=== PATIENT | male | born 1955 | race Caucasian/White ===

== ENCOUNTER 2020-01-25 14:31 | Emergency (ER) | payer MEDICARE, OTHER ==
[~2020-01-25] VITALS: Ht 175.3 cm; Wt 99.8 kg
[2020-01-25] MEDS ORDERED: MIDAZOLAM DRIP 50 mg/50mL 50 ML IV ONE (14:39)
[2020-01-25] MEDS ORDERED: SUCCINYLCHOLINE CHLORIDE 20 MG/ML 10ML VIAL IV ONE (14:39)
[2020-01-25] MEDS ORDERED: ETOMIDATE (2MG/ML) 20ML VIAL IV ONE (14:39)
[2020-01-25 14:40] VITALS: BP 149/123
[2020-01-25] MEDS ORDERED: PHENYLEPHRINE IV 250 ML IV SCH (15:15)
[2020-01-25] MEDS ORDERED: MIDAZOLAM DRIP 50 mg/50mL 50 ML IV SCH (15:15)
[2020-01-25] MEDS ORDERED: DOPamine 1600MCG/ML D5W 250 ML IV ONE (15:15)
[2020-01-25] MEDS ORDERED: NOREPINEPHRINE 8 MG/250ML KIT 250 ML IV SCH (15:15)
[2020-01-25 15:22] LABS: Hematocrit 27.7 % (41.0-53.0); Hemoglobin 8.7 g/dL (13.5-17.5); Mean Corpuscular Hemoglobin 31.7 pg (28.0-32.0); Mean Corpuscular Hgb Conc. 31.5 g/dL (32.0-36.0); Mean Corpuscular Volume 100.8 fL (80.0-100.0); Platelet Count (auto) 128 10^3/uL (140-450); Red Blood Cells 2.75 10^6/uL (4.5-5.90); Red Cell Distribution Width 14.6 % (11.8-14.3); White Blood Cell 7.8 10^3/uL (4.4-10.8)
[2020-01-25] MEDS ORDERED: EPINEPHrine HCL 250 ML IV ONE (15:22)
[2020-01-25] MEDS ORDERED: SODIUM BICARBONATE 8.4% INJ 50ML SYRINGE ONE (15:25)
[2020-01-25] MEDS ORDERED: EPINEPHrine HCL 250 ML IV SCH (15:30)
[2020-01-25 15:31] LABS: Basophils % (manual) 0 (0.0-2.0); Blast Cells 0; Metamyelocytes % 0; Myelocytes % 0; Promyelocytes % 0; Reactive Lymphocytes 0
[2020-01-25 15:38] LABS: Albumin 1.9 g/dL (3.4-5.0); Potassium 3.4 mmol/L (3.5-5.1)
[2020-01-25 15:45] LABS: BUN/Creatinine Ratio 12.4; Bilirubin, Total 0.2 mg/dL (0.2-1.0); Total Protein 3.7 g/dL (6.4-8.2)
[2020-01-25] MEDS ORDERED: PHENYLEPHRINE IV 250 ML IV ONE (15:49)
[2020-01-25] MEDS ORDERED: SODIUM CHLORIDE 0.9% 1,000 ML IV ONE (16:15)
[2020-01-25 16:18] VITALS: BP 66/0
[2020-01-25 16:51] LABS: Band Neutrophils % (manual) 1; Eosinophils % (manual) 1 (0-7); Lymphocytes % (manual) 39 (10.0-50.0); Monocytes % (manual) 8 (0-12)
[2020-01-25 17:16] LABS: INR 1.18 (0.9-1.15); Partial Thromboplastin Time 44.6 sec (23.0-31.2)
== END 2020-01-25 17:03 ==
LOC: EDBD 14:31 → ER 14:43
DX: I46.9 Cardiac arrest, cause unspecified (principal); J96.90 Respiratory failure, unspecified, unspecified whether with hypoxia or hypercapnia; E11.10 Type 2 diabetes mellitus with ketoacidosis without coma; Z20.828 Contact with and (suspected) exposure to other viral communicable diseases
CPT/HCPCS: 31500; 36415; 36556; 36600; 80053; 82805; 83880; 84484; 85007; 85027; 85610; 85730; 87070; 87205; 87426; 92950; 96365; 96366; 99291; J0171; J0330; J2250; J2370; 94003